=== PATIENT | male | born 1960 | race Caucasian/White ===

== ENCOUNTER → 2016-09-03 | Outpatient (CLI) | payer BC | END | disposition short-term general hospital (02) | LOC: CLPAIN 11:08 | DX: M50.30 Other cervical disc degeneration, unspecified cervical region (principal); M47.892 Other spondylosis, cervical region ==

== ENCOUNTER 2016-10-01 13:40 | Day surgery (SDC) | payer BC | END 2016-10-01 16:00 | disposition short-term general hospital (02) | LOC: SURGOP 13:40 → INF/INJ 15:20 → SURGOP 16:00 | PROC: 3E0U3BZ Introduction of Anesthetic Agent into Joints, Percutaneous Approach (ICD-10-PCS; principal; 2016-10-01) | PROC: 3E0U33Z Introduction of Anti-inflammatory into Joints, Percutaneous Approach (ICD-10-PCS; 2016-10-01) | DX: M47.812 Spondylosis without myelopathy or radiculopathy, cervical region (principal); J45.909 Unspecified asthma, uncomplicated; L30.9 Dermatitis, unspecified; E78.5 Hyperlipidemia, unspecified; Z79.899 Other long term (current) drug therapy; Z88.8 Allergy status to other drugs, medicaments and biological substances; Z80.41 Family history of malignant neoplasm of ovary; Z80.42 Family history of malignant neoplasm of prostate | CPT/HCPCS: J1040; Q9967 ==

== ENCOUNTER → 2016-10-22 | Outpatient (CLI) | payer BC | END | disposition short-term general hospital (02) | LOC: CLPAIN 09:17 | DX: M47.812 Spondylosis without myelopathy or radiculopathy, cervical region (principal) ==